=== PATIENT | female | born 1965 | race Caucasian/White ===

== ENCOUNTER 2021-10-13 12:58 | Inpatient (IN) ==
[2021-10-13 14:31] LABS: Basophils % 0.4 %; Eosinophils # 0.2 K/mcL (0.0-0.6); Eosinophils % 3.1 %; Hematocrit 45.1 % (35.3-44.9); Hemoglobin 14.9 g/dL (11.5-15.4); Immature Granulocytes % 0.3 % (0-4); Lymphocytes # 1.6 K/mcL (0.6-4.6); Lymphocytes % 23.1 %; Mean Corpuscular Hemoglobin 31.4 pg (28.0-33.3); Mean Corpuscular Volume 95.1 fL (83.0-100.0); Mean Platelet Volume 8.9 fL (9.4-12.4); Monocytes # 0.5 K/mcL (0.0-1.3); Neutrophils # 4.5 K/mcL (1.6-8.9); Platelet Count 271 K/mcL (140-400); Red Blood Count 4.74 M/mcL (3.82-4.97); Red Cell Distribution Width 12.6 % (11.5-14.5); Segmented Neutrophils % 66.1 %; White Blood Count 6.8 K/mcL (4.3-11.1)
[2021-10-13 14:47] LABS: Acetaminophen < 10 mcg/mL (10-20); Alanine Aminotransferase 16 Units/L (7-52); Albumin 4.5 g/dL (3.5-5.7); Albumin/Globulin Ratio 1.9 (1.1-2.2); Alkaline Phosphatase 59 Units/L (34-104); Aspartate Amino Transferase 16 Units/L (13-39); BUN/Creatinine Ratio 14 (6-26); Bilirubin,Indirect 0.4 mg/dL (0.0-1.0); Bilirubin,Total 0.4 mg/dL (0.3-1.0); Blood Urea Nitrogen 16 mg/dL (6-20); Calcium 9.7 mg/dL (8.6-10.3); Carbon Dioxide 28 mEq/L (23-29); Chloride 106 mEq/L (98-107); Ethanol < 10 mg/dL (Less than 10); Globulin 2.4 g/dL (2.4-3.5); Glucose 60 mg/dL (70-105); Osmolality,Calculated 289 (280-300); Salicylate < 2.5 mg/dL (15.0-30.0); Sodium 140 mEq/L (136-145); Total Protein 6.9 g/dL (6.4-8.9); eGFR For African Americans 57 (> 60); eGFR For Non-African Americans 47 (> 60)
[2021-10-13 14:52] LABS: Bilirubin,Urine Negative (Negative); Blood,Urine Negative (Negative); Clarity,Urine Clear (Clear); Color,Urine Yellow (Yellow); Glucose,Urine (UA) Normal (Normal); Ketones,Urine Negative (Negative); Leukocyte Esterase,Urine Moderate (Negative); Mucus,Urine Few per lpf (None-Few); Nitrite,Urine Negative (Negative); Protein,Urine Negative (Neg-Trace); RBC,Urine 0-3 per hpf (0-3); Specific Gravity,Urine 1.018 (1.010-1.025); Squamous Epithelial Cell,Urine Few per hpf (None-Few); Urobilinogen,Urine Normal (Normal)
[2021-10-13 14:56] LABS: Amphetamine Screen,Urine Negative ng/mL (Cutoff=1000); Barbiturate Screen,Urine Negative ng/mL (Cutoff=200); Benzodiazepines Screen,Urine Negative ng/mL (Cutoff=200); Cannabinoid Screen,Urine Positive ng/mL (Cutoff = 50); Cocaine Screen,Urine Negative ng/mL (Cutoff= 300); Opiate Screen,Urine Negative ng/mL (Cutoff=300); Phencyclidine Screen,Urine Negative ng/mL (Cutoff=25)
[2021-10-13 14:59] LABS: Thyroid Stimulating Hormone 3.145 mcIU/mL (0.340-5.600)
[2021-10-13 18:39] LABS: Influenza A PCR Negative (Negative); Influenza B PCR Negative (Negative); Resp. Syncytial Virus PCR Negative (Negative); SARS-CoV-2 by PCR (In House) Negative (Negative)
[2021-10-13] MEDS ORDERED: *HR* LORazepam 1 MG TABLET PO PRN (18:55)
[2021-10-13] MEDS ORDERED: Haloperidol Lactate 5 MG/ML VIAL IM PRN (18:55)
[2021-10-13] MEDS ORDERED: *HR* LORazepam 2 MG/ML VIAL IM PRN (18:55)
[2021-10-13] MEDS ORDERED: haloperidoL 5 MG TABLET PO PRN (18:55)
[2021-10-14] MEDS ORDERED: Mag Hydrox/Al Hydrox/Simeth 30 ML UDC PO PRN (08:06)
[2021-10-14] MEDS ORDERED: MOM Conc 10 ML UD.LIQ PO PRN (08:06)
[2021-10-14] MEDS ORDERED: FLUoxetine 20 MG CAPSULE PO SCH (09:00)
[2021-10-14] MEDS: ARIPiprazole 10 MG TABLET PO SCH (10:37)
[2021-10-14] MEDS: Acetaminophen 325 MG TABLET PO PRN (10:41)
[2021-10-14] MEDS: hydrOXYzine pamoate 25 MG CAPSULE PO PRN ×2 (10:41→20:41)
[2021-10-14] MEDS: traZODone 50 MG TABLET PO PRN (20:41)
[2021-10-15] MEDS: ARIPiprazole 10 MG TABLET PO SCH (09:40)
[2021-10-15] MEDS: Acetaminophen 325 MG TABLET PO PRN (21:14)
[2021-10-15] MEDS: hydrOXYzine pamoate 25 MG CAPSULE PO PRN (21:14)
[2021-10-15] MEDS: traZODone 50 MG TABLET PO PRN (21:14)
[2021-10-16] MEDS: ARIPiprazole 10 MG TABLET PO SCH (09:58)
[2021-10-16 10:33] VITALS: BP 104/72; PULSE 72; TEMP 98.4; O2SAT 100
== END 2021-10-16 13:30 | disposition home or self-care (01) | DRG 885 ==
LOC: EMEROOARM 12:58 → 1ANU 18:59
PROVIDERS: ADMIT Psychiatry & Neurology Psychiatry; ATTEND Psychiatry & Neurology Psychiatry